=== PATIENT | male | born 1980 | race African-American/Black ===

== ENCOUNTER 2020-12-21 17:22 | Inpatient (IN) | payer OTHER ==
[~2020-12-21] VITALS: Ht 165.1 cm; Wt 64.1 kg
[2020-12-21 17:30] VITALS: BP 140/98
[2020-12-21 18:28] LABS: BILIRUBIN Negative (Negative); BLOOD Negative (Negative); CLARITY Clear (Clear); COLOR Yellow (Yellow); GLUCOSE Negative (Negative); KETONE Trace (Negative); LEUKO ESTERASE Negative (Negative); NITRITE Negative (Negative); PH 5.5 (4.5-8.0); SPECIFIC GRAVITY >= 1.030 (1.001-1.030)
[2020-12-21 18:37] LABS: URINE AMPHETAMINES < 1000 (1000ng/ml); URINE BARBITURATES < 200 (200ng/ml); URINE BENZODIAZEPINES < 200 (200ng/ml); URINE CANNABINOIDS (THC) < 50 (50ng/ml); URINE COCAINE > 300 (300ng/ml); URINE METHADONE > 300 (300ng/ml); URINE OPIATES > 300 (300ng/ml)
[2020-12-21 18:42] LABS: URINE PHENCYCLIDINE < 25 (25ng/ml)
[2020-12-21] MEDS ORDERED: ZESTRIL20 MG PO (18:56)
[2020-12-21] MEDS ORDERED: METHADONE PO (18:59)
[2020-12-21] MEDS ORDERED: CEPHALEXIN500 M1 PO (18:59)
[2020-12-21 19:09] LABS: FINE GRANULAR CAST 0-2; HYALINE CAST 0-2; MUCOUS 2+; RBC 0-2 rbc/hpf (0-2); WBC 0-2 wbc/hpf (0-5)
[2020-12-21 19:15] LABS: BASO # 0.1 10*3/uL (0.0-0.1); BASO % 0.8 % (0.0-1.0); EOS # 0.2 10*3/uL (0.0-0.4); HEMATOCRIT 39.3 % (42.0-52.0); LYMPH # 2.3 10*3/uL (1.3-4.4); LYMPH % 29.2 % (27.0-41.0); MEAN CELL VOLUME 94.9 fl (80.0-94.0); MEAN CORPUSCULAR HGB 30.4 pg (27.0-31.0); MEAN CORPUSCULAR HGB CONC 32.1 g/dl (33.0-37.0); MEAN PLATELET VOLUME 9.7 fl (9.6-12.3); MONO # 0.6 10*3/uL (0.1-1.0); MONO % 7.6 % (3.0-9.0); NEUT # 4.7 10*3/uL (2.3-7.9); NEUT % 59.1 % (47.0-73.0); PLATELET COUNT AUTOMATED 361 10*3/uL (130-400); RED BLOOD COUNT 4.14 10*6/uL (4.50-5.90); RED CELL DISTRI WIDTH 14.9 % (0-14.5); WHITE BLOOD COUNT 7.9 10*3/uL (4.8-10.8)
[2020-12-21 19:30] LABS: ALBUMIN 3.2 gm/dl (3.1-4.5); ALKALINE PHOSPHATASE 131 U/L (45-117); BUN 11 mg/dl (7-24); CHLORIDE 107 mmol/L (98-107); CREATININE 1.29 mg/dL (0.70-1.30); POTASSIUM 4.1 mmol/L (3.5-5.1); SGOT/AST 42 IU/L (3-35); SGPT/ALT 50 U/L (12-78); SODIUM 137 mmol/L (136-145); TOTAL PROTEIN 8.4 gm/dL (6.4-8.2)
[2020-12-21 19:31] LABS: ETHYL ALCOHOL < 3.0 mg/dl (<3)
[2020-12-21 20:00] VITALS: BP 140/73
[2020-12-22] VITALS: BP 143/87
[2020-12-22 08:00] VITALS: BP 149/58
[2020-12-22 12:00] VITALS: BP 148/50
[2020-12-22 16:00] VITALS: BP 147/71
[2020-12-22 20:00] VITALS: BP 135/91
[2020-12-23] VITALS: BP 133/89
[2020-12-23 08:00] VITALS: BP 150/68
[2020-12-23 12:00] VITALS: BP 168/86
[2020-12-23 16:00] VITALS: BP 145/89
[2020-12-23 20:00] VITALS: BP 145/97
[2020-12-24] VITALS: BP 157/97
[2020-12-24 06:26] LABS: BASO % 0.7 % (0.0-1.0); EOS # 0.1 10*3/uL (0.0-0.4); EOS % 1.9 % (1.0-4.0); HEMATOCRIT 37.8 % (42.0-52.0); LYMPH # 2.1 10*3/uL (1.3-4.4); MEAN CELL VOLUME 91.7 fl (80.0-94.0); MEAN CORPUSCULAR HGB 30.6 pg (27.0-31.0); MEAN CORPUSCULAR HGB CONC 33.3 g/dl (33.0-37.0); MEAN PLATELET VOLUME 10.2 fl (9.6-12.3); MONO # 0.5 10*3/uL (0.1-1.0); MONO % 9.2 % (3.0-9.0); PLATELET COUNT AUTOMATED 371 10*3/uL (130-400); RED BLOOD COUNT 4.12 10*6/uL (4.50-5.90); RED CELL DISTRI WIDTH 14.4 % (0-14.5); WHITE BLOOD COUNT 5.8 10*3/uL (4.8-10.8)
[2020-12-24 08:00] VITALS: BP 144/99
[2020-12-24] MEDS ORDERED: ATARAX,VISTARIL50 MG PO (09:53)
[2020-12-24] MEDS ORDERED: ZOFRAN 4 MG ED2 TAB SL (09:53)
== END 2020-12-24 11:23 | disposition home or self-care (01) | DRG 773 ==
LOC: 5E 17:22
PROVIDERS: Internal Medicine; ADMIT Student in an Organized Health Care Education/Training Program; ATTEND Student in an Organized Health Care Education/Training Program
DX: F11.13 Opioid abuse with withdrawal (principal); F10.139 Alcohol abuse with withdrawal, unspecified; M79.10 Myalgia, unspecified site; F14.10 Cocaine abuse, uncomplicated; E44.1 Mild protein-calorie malnutrition; F32.9 Major depressive disorder, single episode, unspecified; I10 Essential (primary) hypertension; F17.210 Nicotine dependence, cigarettes, uncomplicated; D53.9 Nutritional anemia, unspecified; R73.9 Hyperglycemia, unspecified; R74.01 Elevation of levels of liver transaminase levels; Z82.49 Family history of ischemic heart disease and other diseases of the circulatory system; Z84.1 Family history of disorders of kidney and ureter; Z79.899 Other long term (current) drug therapy; Z68.23 Body mass index [BMI] 23.0-23.9, adult